=== PATIENT | female | born 1955 | race Caucasian/White ===

== ENCOUNTER → 2016-12-24 | Outpatient (CLI) | payer BC | END | disposition home or self-care (01) | LOC: GMAB 10:35 | PROVIDERS: ATTEND Family Medicine | DX: Z00.00 Encounter for general adult medical examination without abnormal findings (principal) ==

== ENCOUNTER → 2017-08-22 | Outpatient (CLI) | payer BC ==
--- NOTE | 2017-08-22 11:25 | RAD ---
EXAM DESCRIPTION: Chest,2 Views CLINICAL HISTORY: NONSPEC. ABNORMAL FINDING OF LUNG FIELD COMPARISON: CT scan of chest 04/28/2014. CT scan of the liver on this visit. TECHNIQUE: PA Lateral Images IMPRESSION: Irregular density in the right apex appears to be scarring or partially calcified parenchyma versus pleural thickening on the prior CT scan. Surgical clips in the right axilla. No acute infiltrate or pleural effusion. Cardiopulmonary vascular structures are unremarkable. No acute bony thoracic abnormalities. Consider follow-up chest CT scan for comparison to scan in 2014, if there is further clinical concern. Electronically signed by: Silvino Barnes MD 08/22/2017 11:24 AM CDT
--- NOTE | 2017-08-22 15:40 | US ---
EXAM DESCRIPTION: Liver: Ultrasound. CLINICAL HISTORY: ABN SCREEN COMPARISON: Chest radiographs and MRI scan shoulder on the same visit. TECHNIQUE: Transabdominal scannin-dimensional and Doppler modes. FINDINGS: The gallbladder Common bile duct caliber is 2.3 mm which is dilated but physiologic postcholecystectomy.. No stones in the visualized portion of the duct. Not tender with transducer pressure. The liver demonstrates normal echogenicity; contour of the liver capsule is smooth where seen. No fluid around the liver. Intrahepatic biliary ducts are non-dilated. Craniocaudal dimension in the mid-clavicular axis is 12.3 cm. Pancreas head, body, tail normal in size and echogenicity. Pancreatic duct is not dilated. Normal Doppler vascularity in the murray hepatis. Abdominal aorta proximal 1.7 cm.. IVC visualized and normal caliber. Right kidney measures 9.4 x 4.5 x 4.0 cm. Mid renal cortical thickness 10 mm. Echogenicity normal with no hydronephrosis, no large calcifications, and no perinephric fluid. Contour smooth and vascularity normal. Proximal ureter not visualized. IMPRESSION: 1. Normal size and echogenicity of the liver. Normal intrahepatic ducts. No ascites. Gallbladder surgically removed. Dilation of the common bile duct is interpreted to be physiologic. 2. Normal ultrasound of the pancreas. Minimal cortical atrophy of the right kidney but otherwise unremarkable. Contour smooth. Normal caliber of the proximal abdominal aorta. Electronically signed by: Silvino Barnes MD 08/22/2017 3:39 PM CDT
--- NOTE | 2017-08-23 09:21 | MRI ---
Study: MRI of the Right Shoulder. Indication: PAIN Technique: Multiplanar, multi sequence MRI of the right shoulder was obtained without intravenous contrast. Comparison: None. FINDINGS: Moderate hypertrophic AC joint osteoarthritis. Os acromiale with type II configuration and mild lateral downsloping. Supraspinatus and infraspinatus tendinosis noted. At the anterior supraspinatus tendon insertion there is irregular intermediate grade interstitial tearing involving the anterior two thirds of the insertion. Both tendons are elongated and slightly attenuated with medial myotendinous retraction by approximately 11 mm. No full-thickness tear. High grade subscapularis tendinosis noted with multifocal low-grade interstitial fissuring. Teres minor tendon intact. Grade 1 fatty infiltration rotator cuff musculature. Intracapsular long head biceps tendinosis. Circumferential labral maceration/attenuation. Severe glenohumeral joint osteoarthritis with complete grade 4 chondral loss, significant cortical remodeling, and large osteophyte formation of the humeral head. Moderate-sized joint effusion. No acute fracture. Moderate pericapsular edema tracking medially. Fluid distention superior subscapular recess. Thickening and edema inferior glenohumeral ligament which can be seen with adhesive capsulitis. IMPRESSION: Supraspinatus and infraspinatus tendinosis, attenuation, and tendon elongation with intermediate grade interstitial tearing at the anterior supraspinatus tendon insertion. High-grade subscapularis tendinosis with multifocal low-grade interstitial fissuring. Grade 1 fatty infiltration rotator cuff musculature. Intracapsular long head biceps tendinosis. Severe glenohumeral joint osteoarthritis as above. Adhesive capsulitis. 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 Electronically signed by: Jomar Sweeney MD 08/23/2017 9:20 AM CDT
== END | disposition home or self-care (01) ==
LOC: MRI 07:59
PROVIDERS: ATTEND Family Medicine
DX: R91.8 Other nonspecific abnormal finding of lung field (principal); M25.511 Pain in right shoulder; R93.2 Abnormal findings on diagnostic imaging of liver and biliary tract

== ENCOUNTER → 2017-11-07 | Outpatient (CLI) | payer BC ==
--- NOTE | 2017-11-07 16:52 | CT ---
EXAM DESCRIPTION: Chest w/Contrast CLINICAL HISTORY: 62 years, Female, ABNORMAL CXR COMPARISON: Chest x-ray August 22, 2017, chest CT April 28, 2014 TECHNIQUE: Thin-section axial CT images are obtained during rapid bolus administration of nonionic IV contrast media. Reconstructed MPR images are created and reviewed as well. This exam was performed according to our departmental dose-optimization program, which includes automated exposure control, adjustment of the mA and/or kV according to patient size and/or use of iterative reconstruction technique. FINDINGS: Enhanced examination of the chest demonstrates previous dissection in the axillary region and degenerative and somewhat sclerotic appearance of the right humeral head. There is an almost geographic area of consolidation involving the anterior lateral aspect of the right apex which is slightly denser in appearance than previous CT 3 1/2 years earlier. I would most strongly favor that this represents postradiation or posttreatment changed for a process that is undergone prior treatment in the axillary and/or supraclavicular region of the right shoulder and apical region. Mild pleural thickening is present similar to that previously seen. Other than slightly more dense opacification no progression in extent of disease is noted. Soft tissues are absent in the axillary region consistent with a prior radical dissection. Small normal heart is present with good vascular opacification without evidence of thoracic inlet or superior or anterior mediastinal adenopathy. The middle and posterior mediastinum are unremarkable. No hiatal hernia is noted. Below the diaphragm the gallbladder is surgically absent and small benign cyst in the inferior right lobe of the liver are noted. The bony spine and sternum and the visualized chest wall is grossly unremarkable. Tiny amount of stable pleural scarring or thickening at the anterior right chest is unchanged from 2014 study. The left lung and left thoracic cavity is normal in appearance. No associated pleural effusions are seen. IMPRESSION: 1. Stable pleural and parenchymal scarring as well as evidence of previous left axillary dissection and resection of tissue consistent with old treatment and very similar to previous CT 3 1/2 years earlier. Slightly denser consolidation of the parenchyma in the lateral anterior right apex is evident on today's study. No further workup is recommended and correlation with the nature of the patient's previous surgery in the right axilla is recommended 2. By bowel scarring at the anterior lateral right lower chest wall stable in appearance from prior remote study. 3. No evidence of pulmonary metastatic disease or new infiltrates or masses. Electronically signed by: Anson Ervin MD 11/07/2017 4:51 PM [email or web address]
== END | disposition home or self-care (01) ==
LOC: CT 10:49
PROVIDERS: ATTEND Family Medicine
DX: R91.8 Other nonspecific abnormal finding of lung field (principal)

== ENCOUNTER → 2018-09-14 | Outpatient (CLI) | payer BC | LOC: GMAE 12:23 | PROVIDERS: ATTEND Family Medicine | DX: Z00.00 Encounter for general adult medical examination without abnormal findings (principal); M79.7 Fibromyalgia; M79.641 Pain in right hand ==

== ENCOUNTER → 2019-04-22 | Outpatient (CLI) | payer BC ==
--- NOTE | 2019-04-22 10:37 | US ---
EXAM DESCRIPTION: 3D Diagnostic, Bilateral (accession [id number]), Breast,Left (accession [id number]): Ultrasound CLINICAL HISTORY: 64 yearsFemaleBREAST LUMP. Breast cancer discovered in right supraclavicular lymph nodes June 1998.. Not found in right breast. Patient had chemotherapy and radiation after removal of lymph nodes. Struck in upper outer quadrant left breast biopsy 3 months ago. Bruise may be enlarging. Childbirth. Hysterectomy prior to discovery of breast cancer. HRT previously. COMPARISON: Baseline study at this facility. No prior reports available. TECHNIQUE: Bilateral LM, CC, and MLO projection full-field images, digital mammographic tomosynthesis technique. Bilateral 2-D digital full-field MLO images. CAD not available . Transcutaneous scanning of the upper outer quadrant left breast utilizing kennedy-scale and Doppler modes. Scanning performed by the senior risk analyst and Dr. Barnes. FINDINGS: The breast parenchymal density pattern is: Heterogeneously dense breast tissue, which may obscure small masses. In the upper outer quadrant of the middle third of the left breast at the 1:00 position, is a dominant mass with partially spiculated margins and calcifications inferiorly and anteriorly which are most likely vascular. Approximate dimensions of the mass accounting spiculations are 2.1 x 1.9 x 1.9 cm. Small axillary lymph nodes can be seen. Scattered calcifications in the left breast. Denser fibroglandular tissues anterior half of the left breast. Similar calcifications right breast. Difficult to visualize right pectoral muscle. Right breast is smaller than the left breast. Birads 2 Findings. No new focal, stellate mass or density, focal asymmetry , and no suspicious microcalcifications right breast. Ultrasound: Scanning of the upper outer quadrant of the left breast. Mostly fatty echotexture with minimal fibroglandular tissues. Minimal depression of the scan as well as palpable mass at the region of interest. Ill-defined hypoechoic mass with irregular margins and abundant posterior acoustic shadowing. Minimal vascularity in the margins of the mass. Dimensions are approximately 3.6 x 3.0 cm and wider than tall orientation. No cystic component. No overlying skin changes. No large calcifications. IMPRESSION: 1. BI-RADS Category 4: SUSPICIOUS - Subcategory 4B: Moderate Suspicion For Malignancy. 2. Tissue diagnosis is recommended if there are no clinical contraindications. The FINDINGS and follow up were discussed in person with the patient following the examination. Written communication explaining the IMPRESSION and follow-up, will be mailed to the patient and referring health care provider. CRITICAL COMMUNICATION: The critical value was discussed directly by phone with Dr. Jovany Arana, associate of Dr. Gutierrez, at approximately 0950 hours, on 04/22/2019. Electronically signed by: Silvino Barnes MD 04/22/2019 10:35 AM CDT
== END ==
LOC: MAMMO 09:00
PROVIDERS: ATTEND Family Medicine
DX: R92.8 Other abnormal and inconclusive findings on diagnostic imaging of breast (principal)
CPT/HCPCS: 76641; 77066; G0279